=== PATIENT | female | born 1970 | race Caucasian/White ===

== ENCOUNTER → 2016-12-12 | Day surgery (SDC) | payer OTHER ==
[~2016-12-12] MED LIST: LEVOTHYROXINE50 MCG PO; NORCO 7.5-3251 EACH PO; VITAMIN B12-FO1 EACH PO
== END | disposition home or self-care (01) ==
LOC: OR 05:46
PROVIDERS: Surgery
PROC: 0FT44ZZ Resection of Gallbladder, Percutaneous Endoscopic Approach (ICD-10-PCS; principal; 2016-12-12 07:45)
DX: K80.10 Calculus of gallbladder with chronic cholecystitis without obstruction (principal); K42.9 Umbilical hernia without obstruction or gangrene; M19.90 Unspecified osteoarthritis, unspecified site; E03.9 Hypothyroidism, unspecified; G43.909 Migraine, unspecified, not intractable, without status migrainosus; F17.210 Nicotine dependence, cigarettes, uncomplicated; Z79.1 Long term (current) use of non-steroidal anti-inflammatories (NSAID); Z79.899 Other long term (current) drug therapy; Z87.442 Personal history of urinary calculi; Z87.19 Personal history of other diseases of the digestive system
CPT/HCPCS: 84703; J0295; J1200; J2250; J2405; J2710; J2765; J3010; J7030; J7050; J7120; Q9962

== ENCOUNTER 2020-12-01 19:56 | Emergency (ER) | payer OTHER ==
[~2020-12-01 19:56] MED LIST changes: +PERCOCET 5-3251 EACH PO; +PHENERGAN 25 MG25 M1 PO
[2020-12-02] MEDS ORDERED: PREDNISONE 20 M20 MG PO (01:41)
[2020-12-02] MEDS ORDERED: PROAIR HFA8.5 GM INH (01:41)
[2020-12-02] MEDS ORDERED: ZITHROMAX250 MG PO (01:41)
== END 2020-12-02 02:05 | disposition home or self-care (01) ==
LOC: ER1 19:56
DX: J20.9 Acute bronchitis, unspecified (principal); H66.92 Otitis media, unspecified, left ear; F17.200 Nicotine dependence, unspecified, uncomplicated; Z90.49 Acquired absence of other specified parts of digestive tract
CPT/HCPCS: 71045; 93005; 94664; 99284

== ENCOUNTER 2021-06-22 10:56 | Emergency (ER) | payer OTHER ==
[~2021-06-22 10:56] MED LIST changes: +PREDNISONE 20 M20 MG PO; +PROAIR HFA8.5 GM INH; +ZITHROMAX250 MG PO
[2021-06-22 11:49] LABS: HEMOGLOBIN 14.7 gm/dl (12.3-15.3); RED BLOOD COUNT 4.76 M/UL (4.00-5.10); WHITE BLOOD COUNT 7.3 K/UL (4.5-11.0)
[2021-06-22 13:01] LABS: BUN/CREATININE RATIO 16 (0-10)
[2021-06-22] MEDS ORDERED: BENTYL 20MG TAB20 MG PO (13:52)
[2021-06-22] MEDS ORDERED: ZOFRAN ODT 4 MG4 MG PO (13:52)
== END 2021-06-22 14:04 | disposition home or self-care (01) ==
LOC: ER1 10:56
PROVIDERS: Physician Assistant
DX: R10.11 Right upper quadrant pain (principal); R10.31 Right lower quadrant pain; R10.811 Right upper quadrant abdominal tenderness; R10.814 Left lower quadrant abdominal tenderness; J45.909 Unspecified asthma, uncomplicated; F17.210 Nicotine dependence, cigarettes, uncomplicated; Z90.49 Acquired absence of other specified parts of digestive tract
CPT/HCPCS: 80053; 81001; 82550; 82553; 83690; 84484; 85025; 87086; 93005; 96374; 96375; 99284; J2270; J2405; Q9967